=== PATIENT | female | born 1985 | race Native Hawaiian/Other Pacific Islander ===

== ENCOUNTER 2022-05-18 08:40 | Emergency (ER) | payer OTHER ==
[~2022-05-18] VITALS: Ht 172.7 cm; Wt 185.1 kg
[2022-05-18 08:40] VITALS: BP 126/39; TEMP 97.8
[2022-05-18 09:51] LABS: PLATELET COUNT 104 K/uL (152-353)
== END 2022-05-18 11:48 | disposition home or self-care (01) ==
LOC: ED 08:40
PROVIDERS: Family Medicine
DX: N39.0 Urinary tract infection, site not specified (principal); N92.1 Excessive and frequent menstruation with irregular cycle; E88.81 Metabolic syndrome and other insulin resistance
CPT/HCPCS: 81000; 81025; 85027; 87086; 87088; 99283

== ENCOUNTER 2022-09-13 12:49 | Emergency (ER) | payer OTHER ==
[~2022-09-13] VITALS: Ht 172.7 cm; Wt 185.1 kg
[2022-09-13 13:20] LABS: PLATELET COUNT 115 K/uL (152-353)
[2022-09-13 13:24] LABS: POTASSIUM 4.7 mmol/L (3.6-5.2); SODIUM 140 mmol/L (136-145)
[2022-09-13 13:52] LABS: PARTIAL THROMBOPLASTIN TIME 24.7 SECONDS (24.5-33.6)
[2022-09-13 15:35] VITALS: BP 125/61; TEMP 98.5
== END 2022-09-13 15:38 | disposition home or self-care (01) ==
LOC: ED 12:49
PROVIDERS: Emergency Medicine
DX: I50.9 Heart failure, unspecified (principal); D64.89 Other specified anemias
CPT/HCPCS: 36415; 80053; 81002; 81025; 83880; 84484; 85027; 85610; 85730; 93005; 96374; 96375; 99284; J1940; J2270; J2405

== ENCOUNTER 2022-10-10 10:05 | Outpatient (CLI) | payer OTHER | END 2022-10-10 19:21 | disposition home or self-care (01) | LOC: LABW 10:05 | PROVIDERS: ATTEND Internal Medicine Cardiovascular Disease | DX: E78.49 Other hyperlipidemia (principal) | CPT/HCPCS: 36415; 80061 ==

== ENCOUNTER 2022-10-26 11:38 | Emergency (ER) | payer OTHER ==
[~2022-10-26] VITALS: Ht 172.7 cm; Wt 185.1 kg
[2022-10-26 11:43] VITALS: BP 144/57; TEMP 98.6
== END 2022-10-26 14:03 | disposition home or self-care (01) ==
LOC: ED 11:38
DX: S83.8X2A Sprain of other specified parts of left knee, initial encounter (principal); W18.39XA Other fall on same level, initial encounter; Y93.E1 Activity, personal bathing and showering; Y92.89 Other specified places as the place of occurrence of the external cause
CPT/HCPCS: 81025; 96372; 99283; J1885

== ENCOUNTER 2022-12-14 08:31 | Outpatient (CLI) | payer OTHER ==
[2022-12-14 09:20] LABS: PLATELET COUNT 124 K/uL (152-353)
[2022-12-14 10:12] LABS: POTASSIUM 3.7 mmol/L (3.6-5.2)
== END 2022-12-14 18:55 | disposition home or self-care (01) ==
LOC: LABW 08:31
PROVIDERS: ATTEND Internal Medicine Medical Oncology
DX: D50.8 Other iron deficiency anemias (principal); D69.6 Thrombocytopenia, unspecified; R53.83 Other fatigue; I26.99 Other pulmonary embolism without acute cor pulmonale; D68.59 Other primary thrombophilia; K75.81 Nonalcoholic steatohepatitis (NASH); Z79.899 Other long term (current) drug therapy
CPT/HCPCS: 36415; 80053; 81240; 81241; 82172; 82247; 82465; 82728; 82947; 82977; 83010; 83540; 83883; 84450; 84460; 84478; 85027; 85300; 85303; 85306; 85613; 86146; 86147